=== PATIENT | female | born 1980 | race Caucasian/White ===

== ENCOUNTER 2017-06-27 15:29 | Emergency (ER) | payer OTHER ==
[~2017-06-27] VITALS: Ht 160 cm; Wt 73.6 kg
[2017-06-27 15:40] VITALS: TEMP 37.5; Ht 160 cm; Wt 73.6 kg
[2017-06-27] MEDS ORDERED: KETOROLAC TROMETHAMINE 30 MG/ML VIAL IV STA (16:10)
--- NOTE | 2017-06-27 16:15 | EMERGENCY ROOM VISIT NOTE ---
History Report prepared by Vonnie: Ema Riley Under the Supervision of: Dr. Frank Mcguire M.D. First contact with patient: 16:02 Chief Complaint: CHEST PAIN Stated Complaint: CHEST PAIN Nursing Triage Summary: Pt arrives ALS for evaluation of sudden onset of stabbing left sided chest pain radiating to back and left arm with dizziness. 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 History of Present Illness The patient is a 36 year old female who presents to the Emergency Room with complaints of a sharp, shooting, and stabbing pain in the left side of her chest that radiates down her back and left arm beginning today. 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 She reports she was just standing there and the pain began suddenly and would continuously get worse. She has SOB, dizziness, but denies any nausea, vomiting, and diarrhea. Her LNMP was 06/11/17 and she denies the chance of . Source of History: patient Onset: today Position: chest (left) Quality: sharp, stabbing, other (shooting) Timing: worsening, other (sudden onset) Associated Symptoms: + SOB, No nausea, No vomiting, No diarrhea Note: Positive dizziness Review of Systems See HPI for pertinent positives & negatives. A total of 10 systems reviewed and were otherwise negative. Past Medical & Surgical Old medical records were reviewed. Nurse's notes were reviewed and I agree with. Anxiety Denies history of diabetes, blood clots, pulmonary disease, or cardiac disease Family History No pertinent family history Social History Smoking Status: Never Smoker Smokeless Tobacco Use: Unknown Drug Use: none Marital Status: Housing Status: lives with significant other Occupation Status: employed Current/Historical Medications No Active Prescriptions or Reported Meds Allergies Coded Allergies: Sulfamethoxazole w/Trimethoprim (Verified Allergy, Intermediate, Swelling and blisters of mouth, 06/27/17) Physical Exam Vital Signs Date Time Temp Pulse Resp B/P (MAP) Pulse Ox O2 Delivery O2 Flow Rate FiO2 06/27/17 18:27 83 19 122/74 97 Room Air 06/27/17 17:24 80 20 115/70 97 Room Air 06/27/17 16:01 Room Air 06/27/17 16:00 76 06/27/17 15:43 Room Air 06/27/17 15:40 37.5 83 19 121/73 97 Room Air Physical Exam General: Non-ill appearing young female in no acute distress. HEENT: Normal cephalic atraumatic. Pupils are equal round and reactive to light. Extraocular movements are intact. Oropharynx is pink with moist mucous membranes. No swelling of the mouth lips or tongue. Neck: Supple with a midline trachea. No meningeal signs or stiffness, no JVD or bruits. No Stridor. Chest: Clear to auscultation bilaterally. No wheezes or rhonchi. No increased work of breathing. Reproducibly tender in the anterior chest. No rash or redness. Reproducibly tender with movement. Heart: regular rate and rhythm. Abdomen: Soft nontender, nondistended without rebound guarding or rigidity. Extremities: No cyanosis clubbing or edema. No calf tenderness or assymetry Spine/Back. Non tender to palpation. No CVA tenderness Skin: Good turgor without rashes. Neurologic exam: Cranial nerves two through 12 are intact. Motor and sensation are intact and symmetrical throughout. Medical Decision & Procedures ER Provider Diagnostic Interpretation: Radiology results as stated below per my review and radiologist interpretation: CHEST ONE VIEW PORTABLE CLINICAL HISTORY: Atypical chest pain COMPARISON STUDY: No previous studies for comparison. FINDINGS: The cardiac and mediastinal contours are normal. There is no evidence of focal pulmonary consolidation. There is no evidence of failure. No pleural effusions are visualized.[ IMPRESSION: No active disease in the chest. Electronically signed by: Gopi Powell M.D. 06/27/2017 4:47 PM Dictated Date/Time: 06/27/2017 4:47 PM Laboratory Results 06/27/17 15:30 Red Blood Count 5.07, Mean Corpuscular Volume 84.2, Mean Corpuscular Hemoglobin 28.0, Mean Corpuscular Hemoglobin Concent 33.3, Mean Platelet Volume 9.6, Neutrophils (%) (Auto) 58.9, Lymphocytes (%) (Auto) 23.2, Monocytes (%) (Auto) 10.9, Eosinophils (%) (Auto) 6.3, Basophils (%) (Auto) 0.6, Neutrophils # (Auto ) 4.65, Lymphocytes # (Auto) 1.83, Monocytes # (Auto) 0.86, Eosinophils # (Auto ) 0.50, Basophils # (Auto) 0.05 06/27/17 15:30 Test 06/27/17 15:30 06/27/17 16:16 4/6/18 16:50 White Blood Count 7.90 K/uL (4.8-10.8) Red Blood Count 5.07 M/uL (4.2-5.4) Hemoglobin 14.2 g/dL (12.0-16.0) Hematocrit 42.7 % (37-47) Mean Corpuscular Volume 84.2 fL (80-100) Mean Corpuscular Hemoglobin 28.0 pg (25-34) Mean Corpuscular Hemoglobin Concent 33.3 g/dl (32-36) Platelet Count 346 K/uL (130-400) Mean Platelet Volume 9.6 fL (7.4-10.4) Neutrophils (%) (Auto) 58.9 % Lymphocytes (%) (Auto) 23.2 % Monocytes (%) (Auto) 10.9 % Eosinophils (%) (Auto) 6.3 % Basophils (%) (Auto) 0.6 % Neutrophils # (Auto) 4.65 K/uL (1.4-6.5) Lymphocytes # (Auto) 1.83 K/uL (1.2-3.4) Monocytes # (Auto) 0.86 K/uL (0.11-0.59) Eosinophils # (Auto) 0.50 K/uL (0-0.5) Basophils # (Auto) 0.05 K/uL (0-0.2) RDW Standard Deviation 44.2 fL (36.4-46.3) RDW Coefficient of Variation 14.5 % (11.5-14.5) Immature Granulocyte % (Auto) 0.1 % Immature Granulocyte # (Auto) 0.01 K/uL (0.00-0.02) Anion Gap 6.0 mmol/L (3-11) Est Creatinine Clear Calc Drug Dose 87.7 ml/min Estimated GFR () 101.4 Estimated GFR (Non- 87.5 BUN/Creatinine Ratio 21.8 (10-20) Calcium Level 9.0 mg/dl (8.5-10.1) Total Bilirubin 0.2 mg/dl (0.2-1) Direct Bilirubin < 0.1 mg/dl (0-0.2) Aspartate Amino Transf (AST/SGOT) 16 U/L (15-37) Alanine Aminotransferase (ALT/SGPT) 19 U/L (12-78) Alkaline Phosphatase 79 U/L (45-117) Total Creatine Kinase 183 U/L (26-192) Creatine Kinase MB 1.0 ng/ml (0.5-3.6) Creatine Kinase MB Ratio 0.5 (0-3.0) Total Protein 7.6 gm/dl (6.4-8.2) Albumin 3.6 gm/dl (3.4-5.0) Lipase 190 U/L (73-393) Bedside Troponin I < 0.030 ng/ml (0-0.045) D-Dimer 340 ug/L FEU (0-500) Laboratory studies as stated above per my review. Medications Administered Medications (Trade) Dose Ordered Sig/Denzel Route Start Time Stop Time Status Last Admin Dose Admin Ketorolac Tromethamine (Toradol Inj) 30 mg NOW STAT IV 06/27/17 16:10 06/27/17 16:12 DC 06/27/17 16:17 30 MG ECG Per My Interpretation Indication: chest pain Rate (beats per minute): 66 Rhythm: normal sinus Findings: no acute ischemic change, no ectopy Comparison ECG Date: no prior available ED Course 1603: Past medical records reviewed. The patient was evaluated in room B3, and a complete history and physical examination were performed. 182: Upon reevaluation, the patient is agreeable. I discussed the results and treatment plan with her. She verbalized agreement of the treatment plan. The patient was discharged home. Medical Decision Differential diagnosis: Etiologies such as musculoskeletal, cardiac disease, anxiety, pneumothorax, PE as well as others were entertained. This patient comes in as described above. She was placed in room B3. She had episode of chest pain has been going on since this morning. it is left-sided and it is reproducible bump upon palpation. She came by ambulance was given aspirin and also nitroglycerin and this did not help. she does have a history of anxiety and said this has felt similar. EKG was obtained as well as chest x- ray and multiple blood testing. EKG does not suggest acute coronary syndrome or arrhythmia. Chest x-ray was unremarkable and does not show any pulmonary process or pneumothorax. Her d-dimer is not elevated and in a low pretest press probability setting makes PE highly unlikely. She has no elevation of her cardiac biomarkers. She is feeling better and would like to go home. I will also have her use her Ativan when she gets home and warned her that this can make her drowsy and do not take before drinking, driving, working. She should return if: worsening of symptoms, chest pain, shortness of breath, fever or chills, any new problems or concerns. Medication Reconcilliation Current Medication List: was personally reviewed by me Blood Pressure Screening Patient's blood pressure: Normal blood pressure Blood pressure disposition: Did not require urgent referral Impression Primary Impression: Left sided chest pain Additional Impressions: Costochondritis Anxiety Scribe Attestation The scribe's documentation has been prepared under my direction and personally reviewed by me in its entirety. I confirm that the note above accurately reflects all work, treatment, procedures, and medical decision making performed by me. Departure Information Dispostion Home / Self-Care Prescriptions No Active Prescriptions or Reported Meds Forms Call Back Authorization, HOME CARE DOCUMENTATION FORM, IMPORTANT VISIT INFORMATION Patient Instructions [facility] Additional Instructions Rest. Drink plenty of fluids. Return if: Worsening of symptoms, increasing pain, shortness of breath, any new problems or concerns Use ibuprofen 400 mg every 6 hours, take with food May also try your Ativan when you get home if needed for anxiety. Do not drink try to work after taking Ativan Follow-up with your doctor Friday for recheck Problem Qualifiers
[2017-06-27 16:26] LABS: BASO % 0.6 %; BASO ABS # 0.05 K/uL (0-0.2); EOS % 6.3 %; HEMATOCRIT 42.7 % (37-47); HEMOGLOBIN 14.2 g/dL (12.0-16.0); IG# 0.01 K/uL (0.00-0.02); LYMPH % 23.2 %; LYMPH ABS # 1.83 K/uL (1.2-3.4); MEAN CELL VOLUME 84.2 fL (80-100); MEAN CORPUSCULAR HGB CONC 33.3 g/dl (32-36); MEAN PLATELET VOLUME 9.6 fL (7.4-10.4); MONO % 10.9 %; MONO ABS # 0.86 K/uL (0.11-0.59); NEUT % 58.9 %; NEUT ABS # 4.65 K/uL (1.4-6.5); PLATELET COUNT 346 K/uL (130-400); RED CELL DISTRIBUTION WIDTH CV 14.5 % (11.5-14.5); RED CELL DISTRIBUTION WIDTH SD 44.2 fL (36.4-46.3)
[2017-06-27 16:42] LABS: ALBUMIN 3.6 gm/dl (3.4-5.0); ALT/SGPT 19 U/L (12-78); BLOOD UREA NITROGEN 19 mg/dl (7-18); CARBON DIOXIDE 26 mmol/L (21-32); CREATININE 0.86 mg/dl (0.60-1.20); GLUCOSE 72 mg/dl (70-99); LIPASE 190 U/L (73-393); POTASSIUM 3.5 mmol/L (3.5-5.1); SODIUM 140 mmol/L (136-145)
[2017-06-27 16:47] LABS: ALKALINE PHOSPHATASE 79 U/L (45-117); AST/SGOT 16 U/L (15-37); TOTAL PROTEIN 7.6 gm/dl (6.4-8.2)
--- NOTE | 2017-06-27 16:48 | DIAGNOSTIC IMAGING REPORT ---
CHEST ONE VIEW PORTABLE CLINICAL HISTORY: Atypical chest pain COMPARISON STUDY: No previous studies for comparison. FINDINGS: The cardiac and mediastinal contours are normal. There is no evidence of focal pulmonary consolidation. There is no evidence of failure. No pleural effusions are visualized.[ IMPRESSION: No active disease in the chest. Electronically signed by: Gopi Powell M.D. 06/27/2017 4:47 PM Dictated Date/Time: 06/27/2017 4:47 PM
[2017-06-27 18:27] VITALS: BP 122/74; PULSE 83; O2SAT 97
== END 2017-06-27 18:30 | disposition home or self-care (01) ==
LOC: C.EDB 15:30
DX: R07.9 Chest pain, unspecified (principal); M94.0 Chondrocostal junction syndrome [Tietze]; F41.9 Anxiety disorder, unspecified; Z88.2 Allergy status to sulfonamides